=== PATIENT | female | born 1955 | race Caucasian/White ===

== ENCOUNTER 2019-07-16 09:04 | Outpatient (CLI) | payer MEDICARE, OTHER ==
--- NOTE | 2019-07-16 14:29 | DEXA Report ---
"Reason: POSTMENOPAUSAL, SCR FOR OSTEOPOROSIS Procedure Date: 07/16/2019 Accession Number: [id number] / [id number] Procedure: DEX - Dexa Spine and/or Hip CPT Code: FULL RESULT: EXAM: Dexa Spine and/or Hip DATE: 07/16/2019 9:29 AM CLINICAL HISTORY: POSTMENOPAUSAL, SCR FOR OSTEOPOROSIS TECHNIQUE: Dual energy x-ray absorptiometry (DXA) was performed on a [employer] System. Regions measured are the AP Spine, femoral neck, and if needed forearm. COMPARISON: None. In accordance with the International Society for Clinical Densitometry (ISCD) guidelines, data from previous exams may be reanalyzed using current recommendations and techniques. This is done to allow a more accurate basis for comparison with the current study. FINDINGS: The data for the lumbar spine is as follows: BMD (g/cm/cm) T-SCORE Z-SCORE REGION L1 0.996 -1.1 0.6 L2 1.159 -0.3 1.4 L3 1.152 -0.4 1.3 L4 1.214 0.1 1.8 TOTAL 1.139 -0.3 1.4 NOTE: All evaluable vertebrae are used for classification The data for the hip is as follows: BMD (g/cm/cm) T-SCORE Z-SCORE REGION Neck 0.831 -1.5 0.1 TOTAL 0.838 -1.3 -0.1 NOTE: The femoral neck or total proximal femur, whichever is lowest, is used for classification. IMPRESSION: THE WHO CLASSIFICATION BASED ON THE INTERNATIONAL REFERENCE STANDARD IS OSTEOPENIA. THE FRACTURE RISK IS INCREASED. RECOMMENDATION: Patients with diagnosis of osteoporosis or osteopenia should have regular bone mineral density assessment. For those eligible for Medicare, routine testing is allowed once every 2 years. Testing frequency can be increased for patients who have rapidly progressing disease or for those who are receiving medical therapy to restore bone mass. COMMENT: World Health Organization (WHO) definitions for osteoporosis and osteopenia: NORMAL BMD: T-score at -1.0 or higher, fracture risk is low OSTEOPENIA BMD: T-score between -1.0 and -2.5, fracture risk is increased. OSTEOPOROSIS BMD: T-score at -2.5 or lower, fracture risk is high. National Osteoporosis Foundation recommends: 1. Obtain adequate dietary calcium (at least 1200 mg per day) and vitamin D (400-800 international units per day). 2. Participate, as appropriate, in regular weightbearing and muscle-strengthening exercise. 3. Avoid tobacco use and reduce alcohol and caffeine intake. 4. For more detailed information see the website at www.NOF.org."
== END 2019-07-16 09:05 | disposition home or self-care (01) ==
LOC: DI 09:04
PROVIDERS: ATTEND Internal Medicine
DX: Z13.820 Encounter for screening for osteoporosis (principal); N95.8 Other specified menopausal and perimenopausal disorders; M85.89 Other specified disorders of bone density and structure, multiple sites
CPT/HCPCS: 77080

== ENCOUNTER 2020-11-03 12:50 | Outpatient (CLI) | payer MEDICARE, OTHER ==
--- NOTE | 2020-11-04 12:01 | Mammography Report ---
BILATERAL DIGITAL SCREENING MAMMOGRAM 3D/2D: 11/03/2020 CLINICAL: Routine screening. Comparison is made to exams dated: 07/03/2018 mammogram and 06/27/2017 mammogram - [facility] . The tissue of both breasts is heterogeneously dense. This may lower the sensitivity of mammograp hy. No significant masses, calcifications, or other findings are seen in either breast. There has been no significant interval change. IMPRESSION: NEGATIVE There is no mammographic evidence of malignancy. A 1 year screening mammogram is recommended. This exam was interpreted at Station ID: [id number]. NOTE: For mammograms, a report in lay terms will be sent to the patient. Approximately 15% of breast malignancies will not be visualized mammographically. In the management of a palpable breast mass, a negative mammogram must not discourage biopsy of a clinically suspicious lesion. Electronically Signed By: Rey bell/shaheen:11/04/2020 09:24:59 ACR BI-RADS Category 1: Negative 3341F PARENCHYMAL PATTERN: (D) - The breast(s) demonstrate(s) heterogeneously dense fibroglandular nahomy pérez. BI-RADS CATEGORY: (1) - 1 RECOMMENDATION: (ANNUAL) - Recommend routine annual screening mammography. [id number] 1 year screening LATERALITY: (B)
== END 2020-11-03 12:51 | disposition home or self-care (01) ==
LOC: DI.N 12:50
PROVIDERS: ATTEND Physician Assistant
DX: Z12.31 Encounter for screening mammogram for malignant neoplasm of breast (principal)

== ENCOUNTER 2022-04-04 09:28 | Day surgery (SDC) | payer MEDICARE, OTHER ==
[2022-04-04] MEDS ORDERED: LACTATED RINGERS 1,000 ML IV ONE (09:41)
[2022-04-04] MEDS ORDERED: LIDOCAINE-MPF 2% 5 ML VIAL ONE (10:45)
[2022-04-04] MEDS ORDERED: PROPOFOL 500 MG/50 ML 500 MG/50 ML VIAL ONE (10:45)
--- NOTE | 2022-04-04 10:45 | ANESTHESIA ---
Pre-Anesthesia VS, & Labs - Diagnosis hx polyps - Procedure colonoscopy Vital Signs: Temp Pulse Resp BP Pulse Ox 36.0 C L 58 L 16 135/74 H 100 04/04/22 09:43 04/04/22 09:43 04/04/22 09:43 04/04/22 09:43 04/04/22 09:43 Height: 5 ft 7 in Weight (kg): 59.8 kg Body Mass Index: 20.6 BMI Classification: Healthy weight - NPO >8 hours Last Fluid Intake: am prep - Is Patient ?: No - Lab Results Lab results reviewed: Yes Home Medications and Allergies Home Medications: Ambulatory Orders Aspirin [Evangeline Aspirin] 81 mg PO DAILY 04/03/22 Levothyroxine [Synthroid] 88 mcg PO QDAC 04/03/22 Losartan [Cozaar] 50 mg PO DAILY 04/03/22 Aspirin [Evangeline Aspirin] 81 mg PO DAILY 04/03/22 Levothyroxine [Synthroid] 88 mcg PO QDAC 04/03/22 Losartan [Cozaar] 50 mg PO DAILY 04/03/22 Allergies/Adverse Reactions: Allergies Allergy/AdvReac Type Severity Reaction Status Date / Time hydromorphone [From Dilaudid] Allergy Respiratory Verified 04/03/22 12:13 Anes History & Medical History - Anesthetic History Anesthesia Complications: reports: No previous complications Family history of Anesthesia Complications: Denies Family history of Malignant Hyperthermia: Denies - Medical History Cardiovascular: reports: Hypertension, Valve disorder Pulmonary: reports: None Gastrointestinal: reports: None Urinary: reports: None Musculoskeletal: reports: None Endocrine/Autoimmune: reports: HyPOthyroidism Skin: reports: None Psychosocial: reports: No issues indicated History of Cancer?: No - Surgical History General: reports: Appendectomy, Colonoscopy Gynecologic: reports: Dilation and currettage Exam General: Alert, Oriented x3, Cooperative Dental: WNL Respiratory: Lungs clear, Normal breath sounds, No respiratory distress Cardiovascular: Regular rate Neurological: Normal speech Mental/Cognitive Status: Alert/Oriented X3, Normal for patient Cognitive Status: Within normal limits Plan Anesthesia Type: Total IV Consent for Procedure(s) Verified and Reviewed: Yes Code Status: Attempt Resuscitation ASA classification: 2-Mild systemic disease Is this case an emergency?: No
[2022-04-04] MEDS ORDERED: LACTATED RINGERS 200 ML IV ONE (11:18)
[2022-04-04 11:34] VITALS: BP 132/65
--- NOTE | 2022-04-04 11:42 | ANESTHESIA POST OP EVALUATION ---
Anesthesia Post Eval - Post Anesthesia Eval Vitals: Last Vital Signs Temp 36.2 C L 04/04/22 11:32 Pulse 58 L 04/04/22 11:32 Resp 16 04/04/22 11:32 BP 132/65 H 04/04/22 11:32 Pulse Ox 100 04/04/22 11:32 CV Function Including HR & BP: Stable Pain Control: Satisfactory Nausea & Vomiting: Negative Mental Status: Baseline Respiratory Status: Airway Patent Hydration Status: Satisfactory Anesthesia Complications: None
== END 2022-04-04 09:29 | disposition home or self-care (01) ==
LOC: SDS 09:28
PROVIDERS: ATTEND Surgery
DX: Z12.11 Encounter for screening for malignant neoplasm of colon (principal); K57.30 Diverticulosis of large intestine without perforation or abscess without bleeding; K64.8 Other hemorrhoids; Z86.010 Personal history of colon polyps
CPT/HCPCS: G0105; J7120

== ENCOUNTER 2022-10-10 08:00 | Outpatient (CLI) | payer MEDICARE, OTHER | END 2022-10-10 23:59 | disposition home or self-care (01) | LOC: LAB.N 08:00 | PROVIDERS: ATTEND Nurse Practitioner | DX: R30.0 Dysuria (principal) | CPT/HCPCS: 87086 ==

== ENCOUNTER 2022-12-27 12:31 | Outpatient (CLI) | payer MEDICARE, OTHER ==
--- NOTE | 2022-12-27 13:12 | DEXA Report ---
PROCEDURE: Dexa Spine and/or Hip INDICATIONS: POST MENOPAUSAL TECHNIQUE: Dual energy x-ray absorptiometry (DXA) was performed on a [employer] System. Regions measur ed are the AP Spine, femoral neck, and if needed forearm. COMPARISON: 07/16/2019 FINDINGS: Lumbar Spine: Bone Mineral Density 1.10 g/cm/cm,T score -0.7, previously -0.3 Left Femoral Neck: Bone Mineral Density 0.80 g/cm/cm, T score -1.7, previously -1.5 Left Hip: Bone Mineral Density 0.83 g/cm/cm,T score -1.5, previously -1.3 (T score greater or equal to -1.0: NORMAL) (T score from -1.1 to -2.4: OSTEOPENIA) (T score less than or equal to -2.5 to: OSTEOPOROSIS) Impression: Slightly decreased T-scores compared to prior imaging. Left femoral neck and left hip meet diagnostic criteria for osteopenia, with increased fracture risk. Lumbar spine T score is still within normal l imits. Patients with diagnosis of osteoporosis or osteopenia should have regular bone mineral density assess ment. For those eligible for Medicare, routine testing is allowed once every 2 years. Testing frequ ency can be increased for patients who have rapidly progressing disease or for those who are receivin g medical therapy to restore bone mass. Reviewed by: Yakov Rodriguez MD on 12/27/2022 1:11 PM PDT Approved by: Yakov Rodriguez MD on 12/27/2022 1:11 PM PDT Station ID: [id number]
== END 2022-12-27 12:32 | disposition home or self-care (01) ==
LOC: DI 12:31
PROVIDERS: ATTEND Physician Assistant
DX: M85.89 Other specified disorders of bone density and structure, multiple sites (principal)

== ENCOUNTER 2023-05-23 12:23 | Outpatient (CLI) | payer MEDICARE, OTHER ==
--- NOTE | 2023-05-24 11:36 | Mammography Report ---
BILATERAL DIGITAL SCREENING MAMMOGRAM 3D/2D: 05/23/2023 CLINICAL: Routine screening. Comparison is made to exams dated: 11/03/2020 mammogram - [facility] and 07/03/2018 mammogram - [facility]. Both breasts are heterogeneously dense, which may obscure small masses (category c / 51-75% glandular tissue). No significant masses, calcifications, or other findings are seen in either breast. There has been no significant interval change. IMPRESSION: NEGATIVE There is no mammographic evidence of malignancy. A 1 year screening mammogram is recommended. Based on the Tyrer Cuzick model (a risk assessment model) the patients lifetime risk is 10.7% and he r 10 year risk is 6.0%. According to the ACR, ACS, and NCCN guidelines, an annual breast MRI exam vik ng with mammogram is recommended if the patients lifetime risk is 20% or greater. This exam was interpreted at Station ID: [id number]. NOTE: For mammograms, a report in lay terms will be sent to the patient. Approximately 15% of breast malignancies will not be visualized mammographically. In the management of a palpable breast mass, a negative mammogram must not discourage biopsy of a clinically suspicious lesion. Electronically Signed By: Yakov chen/shaheen:05/23/2023 13:23:24 letter sent: No_Letter ACR BI-RADS Category 1: Negative 3341F PARENCHYMAL PATTERN: (D) - The breast(s) demonstrate(s) heterogeneously dense fibroglandular nahomy pérez. BI-RADS CATEGORY: (1) - 1 Mammogram [id number] 1 year screening LATERALITY: (B)
== END 2023-05-23 12:24 | disposition home or self-care (01) ==
LOC: DI 12:23
PROVIDERS: ATTEND Physician Assistant
DX: Z12.31 Encounter for screening mammogram for malignant neoplasm of breast (principal)

== ENCOUNTER 2023-11-02 11:15 | Outpatient (CLI) | payer MEDICARE, OTHER ==
[2023-11-02 18:09] LABS: BILIRUBIN,URINE NEGATIVE (NEGATIVE); GLUCOSE, URINE (UA) 100 mg/dL (NEGATIVE); KETONES,URINE (UA) 15 mg/dL (NEGATIVE); LEUKOCYTE ESTERASE, URINE MODERATE (NEGATIVE); NITRITE,URINE POSITIVE (NEGATIVE); OCCULT BLOOD,URINE LARGE (NEGATIVE); PH,URINE 6.5 PH (5.0-7.5); PROTEIN,URINE >=300 mg/dL (NEGATIVE); UROBILINOGEN,URINE 2 E.U./dL (NORMAL)
[2023-11-02 18:26] LABS: CLARITY,URINE CLOUDY (CLEAR); RBC,URINE TNTC /HPF (0-5)
[2023-11-02 18:27] LABS: BACTERIA,URINE Many /HPF (None Seen); SQUAMOUS EPITHELIAL CELL,UR RARE Squamous (<= Few)
== END 2023-11-02 11:30 | disposition home or self-care (01) ==
LOC: LAB.N 11:15
PROVIDERS: ATTEND Physician Assistant Medical
DX: R31.9 Hematuria, unspecified (principal)
CPT/HCPCS: 81001; 87086